=== PATIENT | female | born 1980 | race Caucasian/White ===

== ENCOUNTER 2017-11-24 23:19 | Emergency (ER) | payer BC, SELFPAY ==
[2017-11-25 00:01] VITALS: BP 155/98; PULSE 84; RESP 18; TEMP 36.9; O2SAT 98; BMI 30.2
--- NOTE | 2017-11-25 00:22 | [facility].EDBACK ---
ED Disposition Clinical Impression: Lumbar radiculopathy Disposition: Home, Self-Care Condition on Discharge: Good Instructions: DI for Low Back Pain Additional Instructions: use meds and see pcp for follow up Prescriptions: Cyclobenzaprine HCl [Flexeril 10mg tablet] 10 mg PO TID #30 tab Hydrocod/Acet 5/325 mg [[place] 5/325mg tablet] 1 tab PO Q6HP PRN #20 tab PRN Reason: Moderate To Severe Pain predniSONE [Prednisone 20mg Tab] 20 mg PO DAILY #10 tab Referrals: Siobhan Silva [Primary Care Provider] - - Critical Care Critical Care Time: No Attestation: On 11/24/17, the high probability of a clinically significant, sudden or life threatening deterioration of the following system(s) required my full and direct attention, intervention and personal management. The time I documented below is in addition to time spent performing reported procedures but includes the following listed in this critical care notation. Medical Decision Making - Medical Records Medical records reviewed: Yes: I reviewed the patient's medical records. Vital Signs: 11/25/17 00:01 Temperature 98.4 F Temperature Source Oral Pulse Rate [Right] 84 Respiratory Rate 18 Blood Pressure [Right Arm] 155/98 Blood Pressure Mean [Right Arm] 117 Blood Pressure Source [Right Arm] Automatic Cuff Blood Pressure Position [Right Arm] Sitting 02 Sat by Pulse Oximetry 98 Oxygen Delivery Method Room Air - Lab Data Lab results reviewed: Yes: I reviewed the patient's lab results. Lab Results 11/25/17 00:35: Urine Color Yellow, Urine Appearance Clear, Urine pH 6.0, Ur Specific [place] 1.015, Urine Protein Negative, Urine Glucose (UA) Negative, Urine Ketones Negative, Urine Blood Negative, Urine Nitrate Negative, Urine Bilirubin Negative, Urine Urobilinogen 0.2, Ur Leukocyte Esterase Negative, Urine WBC 3-5, Ur Squamous Epith Cells 3-5, Urine Bacteria 1+, Urine Mucus Trace 11/25/17 00:35: Urine HCG, Qual Negative 11/25/17 00:45: WBC 6.6, RBC 4.53, Hgb 13.5, Hct 40.2, MCV 88.7, MCH 29.7, MCHC 33.5, RDW 14.1, Plt Count 261, MPV 8.1, Neut % (Auto) 50.8, Lymph % (Auto) 41.1, [place] % (Auto) 5.3, Eos % (Auto) 2.0, Baso % (Auto) 0.9, Neut # (Auto) 3.3, Lymph # (Auto) 2.7, [place] # (Auto) 0.4, Eos # (Auto) 0.1, Baso # (Auto) 0.1, ESR 25 H 11/25/17 00:45: Sodium 139, Potassium 3.8, Chloride 106, Carbon Dioxide 23, Anion Gap 13.8, BUN 9, Creatinine 0.70, Estimated Creat Clear 165, Estimated GFR 95, Est GFR ( Amer) 115, Glucose 98, Calcium 8.7, Total Bilirubin 0.3, AST 12 L, ALT 24, Alkaline Phosphatase 85, C-Reactive Protein 0.7, Total Protein 7.8, Albumin 3.9, Globulin 3.9 H, Albumin/Globulin Ratio 1.0 L Result diagrams: 11/25/17 00:45 11/25/17 00:45 Orders (Tests/Meds): ED MEDICATIONS Discontinued Medications Generic Name Dose Route Start Last Admin Trade Name Freq PRN Reason Stop Dose Admin Ketorolac Tromethamine 30 mg 11/25/17 00:25 11/25/17 00:59 Toradol 30mg/Ml Vial IV 11/25/17 00:26 30 mg ONCE ONE Administration Methylprednisolone Sodium Succinate 125 mg 11/25/17 00:26 11/25/17 00:59 Solu-Medrol 125mg/2ml Vial IV 11/25/17 00:27 125 mg ONCE ONE Administration Morphine Sulfate 5 mg 11/25/17 02:13 11/25/17 02:19 Morphine 10mg/Ml Syringe IV 11/25/17 02:14 5 mg ONCE ONE Administration Promethazine HCl 12.5 mg 11/25/17 02:13 11/25/17 02:18 Phenergan 25mg/Ml 1ml Vial IV 11/25/17 02:14 12.5 mg ONCE ONE Administration Sodium Chloride 25 ml 11/25/17 02:13 11/25/17 02:18 Sod Chloride 0.9% 25ml Bag IV 11/25/17 02:14 25 ml ONCE ONE Administration ORDERS Category Date Time Status CT lumbar spine wo con Stat Cat Scan 11/25/17 00:25 Taken - CT Data CT Scan: L-Spine Time Received: 02:[address] Reviewed: Yes: I have viewed the radiologist's interpretation Preliminary Findings: Abnormal - [place] Inquiry Pt receiving controlled substance: No [facility] History I have reviewe
--- NOTE | 2017-11-25 00:25 | CT_ITS ---
CT lumbar spine wo con INDICATION: Low back pain ITS.REASON: pain ORDERING PHYSICIAN: Gabino Grissom MD PATIENT AGE: 37 years COMPARISON: None TECHNIQUE: Axial images are obtained without contrast. Sagittal and coronal reformatted images are reviewed as well. FINDINGS: There is normal alignment. No fracture or dislocation. No lytic or blastic change. Mild bulging disc slightly eccentric to the left at L3-L4. Bulging disc at L4-L5 also slightly eccentric to the left. Mild left lateral recess narrowing. Degenerative disc disease L5-S1 with bulging disc and mild central disc protrusion with bilateral lateral recess narrowing lung facet ligamentum flavum hypertrophy. Small amount fluid in the cul-de-sac. Left ovary is prominent. 2.7 cm left ovarian cyst. IMPRESSION: 1. No acute finding. 2. Lumbar spondylosis with bulging disc at L3-L4, L4-5, and L5-S1 with mild central disc protrusion at L5-S1. Consider MRI for more thorough evaluation. 3. 2.7 cm cyst with a small amount of fluid in the cul-de-sac
--- NOTE | 2017-11-25 00:26 | ED_ITS ---
ED Disposition Clinical Impression: Lumbar radiculopathy Disposition: Home, Self-Care Condition on Discharge: Good Instructions: DI for Low Back Pain Additional Instructions: use meds and see pcp for follow up Prescriptions: Cyclobenzaprine HCl [Flexeril 10mg tablet] 10 mg PO TID #30 tab Hydrocod/Acet 5/325 mg [[place] 5/325mg tablet] 1 tab PO Q6HP PRN #20 tab PRN Reason: Moderate To Severe Pain predniSONE [Prednisone 20mg Tab] 20 mg PO DAILY #10 tab Referrals: Siobhan Silva [Primary Care Provider] - - Critical Care Critical Care Time: No Attestation: On 11/24/17, the high probability of a clinically significant, sudden or life threatening deterioration of the following system(s) required my full and direct attention, intervention and personal management. The time I documented below is in addition to time spent performing reported procedures but includes the following listed in this critical care notation. Medical Decision Making - Medical Records Medical records reviewed: Yes: I reviewed the patient's medical records. Vital Signs: 11/25/17 00:01 Temperature 98.4 F Temperature Source Oral Pulse Rate [Right] 84 Respiratory Rate 18 Blood Pressure [Right Arm] 155/98 Blood Pressure Mean [Right Arm] 117 Blood Pressure Source [Right Arm] Automatic Cuff Blood Pressure Position [Right Arm] Sitting 02 Sat by Pulse Oximetry 98 Oxygen Delivery Method Room Air - Lab Data Lab results reviewed: Yes: I reviewed the patient's lab results. Lab Results 11/25/17 00:35: Urine Color Yellow, Urine Appearance Clear, Urine pH 6.0, Ur Specific [place] 1.015, Urine Protein Negative, Urine Glucose (UA) Negative, Urine Ketones Negative, Urine Blood Negative, Urine Nitrate Negative, Urine Bilirubin Negative, Urine Urobilinogen 0.2, Ur Leukocyte Esterase Negative, Urine WBC 3-5, Ur Squamous Epith Cells 3-5, Urine Bacteria 1+, Urine Mucus Trace 11/25/17 00:35: Urine HCG, Qual Negative 11/25/17 00:45: WBC 6.6, RBC 4.53, Hgb 13.5, Hct 40.2, MCV 88.7, MCH 29.7, MCHC 33.5, RDW 14.1, Plt Count 261, MPV 8.1, Neut % (Auto) 50.8, Lymph % (Auto) 41.1 , [place] % (Auto) 5.3, Eos % (Auto) 2.0, Baso % (Auto) 0.9, Neut # (Auto) 3.3, Lymph # (Auto) 2.7, [place] # (Auto) 0.4, Eos # (Auto) 0.1, Baso # (Auto) 0.1, ESR 25 H 11/25/17 00:45: Sodium 139, Potassium 3.8, Chloride 106, Carbon Dioxide 23, Anion Gap 13.8, BUN 9, Creatinine 0.70, Estimated Creat Clear 165, Estimated GFR 95, Est GFR ( Amer) 115, Glucose 98, Calcium 8.7, Total Bilirubin 0.3 , AST 12 L, ALT 24, Alkaline Phosphatase 85, C-Reactive Protein 0.7, Total Protein 7.8, Albumin 3.9, Globulin 3.9 H, Albumin/Globulin Ratio 1.0 L Result diagrams: 11/25/17 00:45 11/25/17 00:45 Orders (Tests/Meds): ED MEDICATIONS Discontinued Medications Generic Name Dose Route Start Last Admin Trade Name Freq PRN Reason Stop Dose Admin Ketorolac Tromethamine 30 mg 11/25/17 00:25 11/25/17 00:59 Toradol 30mg/Ml Vial IV 11/25/17 00:26 30 mg ONCE ONE Administration Methylprednisolone Sodium Succinate 125 mg 11/25/17 00:26 11/25/17 00:59 Solu-Medrol 125mg/2ml Vial IV 11/25/17 00:27 125 mg ONCE ONE Administration Morphine Sulfate 5 mg 11/25/17 02:13 11/25/17 02:19 Morphine 10mg/Ml Syringe IV 11/25/17 02:14 5 mg ONCE ONE Administration Promethazine HCl 12.5 mg 11/25/17 02:13 11/25/17 02:18 Ph
[2017-11-25 00:54] LABS: Basophils # 0.1 K/mm3 (0-0.2); Basophils % 0.9 % (0.1-2.0); Eosinophils # 0.1 K/mm3 (0.0-0.4); Hematocrit 40.2 % (37.0-47.0); Hemoglobin 13.5 g/dL (12.2-16.2); Lymphocytes # 2.7 K/mm3 (0.7-4.5); Lymphocytes % 41.1 K/mm3 (10-50); Mean Corpuscular HGB Conc 33.5 g/dL (31.8-35.4); Mean Corpuscular Hemoglobin 29.7 pg (27.0-31.2); Mean Corpuscular Volume 88.7 fl (81-99); Mean Platelet Volume 8.1 fl (7.4-10.4); Monocytes # 0.4 K/mm3 (0.1-1.0); Monocytes % 5.3 % (1.7-9.3); Neutrophils # 3.3 K/mm3 (1.8-7.8); Neutrophils % 50.8 % (37.0-80.0); Platelet Count 261 K/mm3 (142-424); Red Blood Count 4.53 M/mm3 (4.20-5.40); Red Cell Distribution Width 14.1 % (11.5-17.5); White Blood Count 6.6 K/mm3 (4.8-10.8)
[2017-11-25 00:55] LABS: Microscopic, Urine URINE MICROSCOPIC (MICROSCOPIC)
[2017-11-25 00:59] LABS: Appearance,Urine CLEAR (Clear); Bilirubin,Urine Negative (Negative); Blood, Urine Negative (Negative); Color,Urine YELLOW (Yellow); Glucose,Urine (UA) Negative (Negative); Ketones,Urine Negative (Negative); Leukocyte Esterase,Urine Negative (Negative); Nitrate,Urine Negative (Negative); Protein,Urine Negative (Negative); Specific Gravity, Urine 1.015 (1.005-1.030); Urobilinogen,Urine 0.2 EU/dl (0.2)
[2017-11-25 01:12] LABS: Urine Pregnancy, HCG Qual. Negative (Negative)
[2017-11-25 01:28] LABS: Bacteria,Urine 1+ /lpf; Mucus,Urine Trace /lpf
[2017-11-25 01:38] LABS: Alanine Aminotransferase 24 U/L (12-78); Albumin Level 3.9 gm/dL (3.4-5.0); Alkaline Phosphatase 85 U/L (46-116); Anion Gap 13.8 mEq/L (5-15); Aspartate Amino Transferase 12 U/L (15-37); Bilirubin,Total 0.3 mg/dL (0.2-1.0); Blood Urea Nitrogen 9 mg/dL (7-18); C-Reactive Protein 0.7 mg/L (0.0-0.9); Calcium 8.7 mg/dL (8.5-10.1); Carbon Dioxide 23 mmol/L (21.0-32.0); Chloride 106 mmol/L (98-107); Creatinine Clearance Estimated 165 mL/min (0-300); Estimated Glomerular Filt Rate 95 ml/min (>60); GFR (African American) 115 ML/MIN (>60); Globulin 3.9 gm/dl (1.3-3.2); Glucose 98 mg/dL (74-106); Potassium 3.8 mmoL/L (3.5-5.1); Sodium 139 mmol/L (136-145); Total Protein,Serum 7.8 gm/dL (6.4-8.2)
[2017-11-25 01:48] LABS: Erythrocyte Sedimentation Rate 25 mm/hr (0-20)
[2017-11-25 02:52] VITALS: BP 133/85; PULSE 85; O2SAT 98
== END 2017-11-25 02:59 | disposition home or self-care (01) ==
PROVIDERS: Emergency Provider Emergency Medicine; PCP Physician Assistant
DX: M54.16 Radiculopathy, lumbar region (principal); Z87.891 Personal history of nicotine dependence; Z88.0 Allergy status to penicillin; Z88.6 Allergy status to analgesic agent
CPT/HCPCS: 72131; 80053; 81001; 81025; 85025; 85651; 86140; 96374; 96375; 99282